=== PATIENT | male | born 1970 | race Caucasian/White ===

== ENCOUNTER 2016-10-11 10:22 | Emergency (ER) | payer OTHER ==
--- NOTE | 2016-10-11 11:21 | DIAGNOSTIC IMAGING REPORT ---
PROCEDURE: XR CHEST 1 VIEW INDICATION: CHEST PAIN TECHNIQUE: Portable AP view 10:35 a.m. COMPARISON: Chest 11/30/2014 FINDINGS: Lungs are clear. Heart and mediastinum are normal. Thorax is normal. IMPRESSION: 1. Negative chest.
--- NOTE | 2016-10-11 13:58 | ED CLINICAL REPORT ---
Clinical Report - Physicians/Mid Levels [facility] [address] [place] [address] 10/11/2016 10:23 Patient: CHRISTA LANTIGUA Time Seen: 10:34. Arrived- By private vehicle. Historian- patient. CPT: ER phys charges level 4 plus (#[id number]). EKG interpretation (#[id number]). HISTORY OF PRESENT ILLNESS Chief Complaint: CHEST DISCOMFORT. At its maximum, severity described as moderate. When seen in the E.D., severity described as mild. Modifying factors. Not worsened by anything. Not relieved by anything. This started about 4 months [employer]AG[employer]; his had this pain on and off for the last 4 months. Describes is in the left chest and feels like a muscle ache. Says it seen a humanities teacher a year ago and had a nuclear treadmill that was negative although the humanities teacher wanted to do a cardiac catheter. Patient failed to follow up for this. and is still present. Onset during light activity. It is described as sharp and "pain" and it is described as located in the left chest area. No nausea, vomiting, difficulty breathing or diaphoresis. Similar symptoms previously: Recent medical care: Not recently seen/assessed. REVIEW OF SYSTEMS No fever, chills, cough, pedal edema or calf pain. No fainting episodes, sore throat, blurred vision, abdominal pain or black stools. No difficulty with urination, skin rash, enlarged lymph nodes, joint pain or bloody stools. All systems otherwise negative, except as recorded above. PAST HISTORY Hyperlipidemia. Sprain. Bronchospasm. Pneumonia. COPD - Chronic Obstructive Pulmonary Disease. Dental Pain. Hypertension. Carpal Tunnel Syndrome. Cervical Strain. Rotator Cuff Injury. Lung Disease. Tetanus Status. Immunizations. Upper Extremity Pain. Manic depression. Bipolar Disorder. --10:27 Ferdinand Camarena R.N. ADDITIONAL SURGERIES: Carpal Tunnel Surgery. Inguinal Hernia Repair. No history of hypertension or diabetes mellitus. SOCIAL HISTORY Never smoker. FAMILY HISTORY History of heart disease with premature onset and in multiple family members. ADDITIONAL NOTES The nursing notes have been reviewed. PHYSICAL EXAM Vital Signs: 10/11/2016 10:25 BP: 135/96. HR: 73. RR: 16. O2 saturation: 100%. Temp: 97.8 F. Pain level now: 06/12. Appearance: Alert. No acute distress. Anxious. Eyes: Pupils equal, round and reactive to light. Eyes normal inspection. ENT: Ears normal. Nose normal. Pharynx normal. Neck: Normal inspection. Neck supple. CVS: Normal heart rate and rhythm. Heart sounds normal. Pulses normal. No cardiac murmur. Respiratory: No respiratory distress. Chest pain reproducible with palpation of the costochondral junction and lateral chest wall, with movement of the trunk and left arm and with deep breathing. Breath sounds normal. Abdomen: Soft and nontender. Back: Normal external inspection. Skin: Skin warm. Normal skin color. No rash. Extremities: Extremities exhibit normal ROM. No calf tenderness. Neuro: Oriented X 3. No motor deficit. No sensory deficit. Reflexes normal. LABS, X-RAYS, AND EKG EKG: Normal sinus rhythm. Normal P waves. Normal CLIFF. Normal QRS complex. Normal axis. Normal ST and T waves. Prior EKG unavailable. The study has been interpreted contemporaneously. The study has been independently viewed by me. The EKG appears to be a good tracing. Chest X-ray: Normal Chest X-Ray. Laboratory Tests: CBC w Diff: (FERNANDA: 10/11/2016 10:30) ( MsgRcvd 10/11/2016 10:41) Final results Test Result Flag Units (Reference) WHITE BLOOD COUNT 6.1 K/uL (4.5-11.5) RED BLOOD COUNT 5.16 M/uL (4.50-5.90) HEMOGLOBIN 15.1 gm/dL (13.5-17.5) HEMATOCRIT 45.5 % (41.0-53.0) MEAN CELL VOLUME 88 fL (80-100) MEAN CORPUSCULAR HGB 29 pg (26-34) MEAN CORPUSCULAR HGB CONC 33 g/dL (31-37) RED CELL DISTRIBUTION WIDTH 14.0 % (11.6-14.8) PLATELET COUNT 203 K/uL (150-400) NEUTROPHIL % 57.8 % (50-75) LYMPH % 31.8 % (25-40) MONO % 8.2 % (3-14) EOSINOPHIL % 1.9 % (0-4) BASOPHIL % 0.3 % (0-2) [id number]: (FERNANDA: 10/11/2016 10:30) ( MsgRcvd 10/11/2016 11:52) Final results Test Result Flag Units (Reference) C-REACTIVE PROTEIN < 0.2 mg/dL (0.0-0.9) CHEM 13 PANEL: (FERNANDA: 10/11/2016 10:30) ( MsgRcvd 10/11/2016 11:02) Final results Test Result Flag Units (Reference) GLUCOSE 139 H mg/dL (70-110) BUN 15 mg/dL (7-18) CREATININE 1.1 mg/dL (0.6-1.3) Estimated GFR >60 mL/min Estimated GFR- >60 mL/min Note: Persistent reduction over 3 months in eGFR<60 mL/min/1.73 m2 defines CKD. Patients with eGFR values>=60 mL/min/1.73 m2 may also have CKD if evidence ofpersistent proteinuria. Additional information may be foundat [email or web address].org. SODIUM 142 mmol/L (136-145) POTASSIUM 4.0 mmol/L (3.5-5.1) CHLORIDE 103 mmol/L (98-107) CARBON DIOXIDE 29 mmol/L (21-32) CALCIUM 9.3 mg/dL (8.5-10.1) TOTAL PROTEIN 8.1 g/dL (6.4-8.2) ALBUMIN 3.7 g/dL (3.3-5.0) BILIRUBIN, TOTAL 0.4 mg/dL (0.0-1.0) ALKALINE PHOSPHATASE 90 U/L (46-116) AST (SGOT) 29 U/L (15-37) ALT (SGPT) 43 U/L (12-78) CPK 116 U/L (24-260) MAGNESIUM 2.0 mg/dL (1.8-2.4) TROPONIN I <0.05 L ng/mL (0.00-1.5) TROPONIN REFERENCE RANGE:<0.1 NEGATIVE0.1-1.5 INDETERMINANT>1.5 POSITIVE . PROGRESS AND PROCEDURES Course of Care: Heplock ASA 325 mg po Toradol 30 mg IV Ativan 0.5 mg IV Patient is stable. Symptoms better. Dr Morales: orderdd a coronary CTA. Insurance company denied . Angiogram offered but he was a no show. Discussed case with health care provider (Pt's humanities teacher, Carol Simon.). Reviewed test results. Agreed upon treatment plan. Health care provider will see patient in office. Patient/family counseled. Old medical records ordered. Disposition: Discharged. Condition: stable and improved. CLINICAL IMPRESSION Costochondritis .12 lead EKG performed. Anxiety due to job and chest pains. INSTRUCTIONS No strenuous activity. Rest. Do not work for two days until better. Warnings: Further evaluation is necessary. GENERAL WARNINGS: Return or contact your physician immediately if your condition worsens or changes unexpectedly, if not improving as expected, or if other problems arise. Prescription Medications: Hydrocodone/APAP 5mg/325mg: take 1 to 2 orally every 6 hours as needed for pain. Dispense fifteen (15). No refills. Ibuprofen 600mg tablets: take 1 tablet orally every 8 hours as needed for pain. Dispense thirty (30). No refills. Flexeril 10 mg: Take 1 orally every 8 hours as needed for muscle spasm. Dispense twenty (20). No refills. Substitution is permissible. Follow-up: Follow up with your doctor in one week. Call for an appointment. Follow up with a humanities teacher in one week. Call for an appointment. Understanding of the discharge instructions verbalized by patient. (Electronically signed by Ghanshyam Vaughan MD 10/12/2016 12:47)
--- NOTE | 2016-10-11 13:58 | ED NURSING NOTES ---
Clinical Report - Nurses [facility] [address] [address] 10/11/2016 10:23 Patient: CHRISTA LANTIGUA TRIAGE Triage time 10:25. Acuity: LEVEL 3. Chief Complaint: CHEST PAIN. 10:25 10/11/16. 10:25 10/11/16. Alert. No acute distress. --10:30 Ferdinand Camarena R.N. 10:25 10/11/16. BP: 135/96 taken on the left arm, while lying. HR: 73. RR: 16. O2 saturation: 100% on room air. Temp: 97.8 F (oral). Pain level now: 06/12. --10:30 Ferdinand Camarena R.N. SEPSIS SCREEN: Sepsis Screen. Negative (no infection suspected/documented). BALJINDER COMA SCORE: Baljinder Coma Scale: 15- eyes open spontaneously (4); best verbal response- oriented x 4 (5); best motor response- obeys commands (6). --11:24 Ferdinand Camarena R.N. Weight: 68 kg stated. Height/Length: 68 inches Per Patient. BMI: 22.8. --10:27 Ferdinand Camarena R.N. Medications Albuterol Sulfate Inhalation 2 puffs, PRN. Methadone HCl Oral (Tablet 10 mg) 1 tablet, BID. --10:26 Ferdinand Camarena R.N. Ziprasidone HCl Oral 20 mg, daily. --10:26 Ferdinand Camarena R.N. Medication/allergy information source: the patient and patient's family. --10:30 Ferdinand Camarena R.N. Allergies Codeine. Penicillins. --10:25 Ferdinand Camarena R.N. History Arrived by private vehicle. Historian: patient. Accompanied by family. Primary physician (BETHANY CALVIN). 10:25 10/11/16. ( For the past few months). 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 PAST MEDICAL HX: Immunizations not up to date. SOCIAL HX: Never smoker. No alcohol use or drug use. No infectious disease exposure. ABUSE ASSESSMENT: No report of abuse. FALL RISK ASSESSMENT: Fall risk assessment completed. No fall risk identified. NUTRITIONAL RISK ASSESSMENT: The nutritional risk assessment revealed no deficiencies. FUNCTIONAL ASSESSMENT: Functional assessment: no impairments noted. LEARNING NEEDS ASSESSMENT: The learning needs assessment revealed no barriers. SKIN INTEGRITY ASSESSMENT: Skin integrity risk assessment completed. No skin integrity risk identified. --10:30 Ferdinand Camarena R.N. PROBLEMS: Sprain. Bronchospasm. Pneumonia. COPD - Chronic Obstructive Pulmonary Disease. Dental Pain. Hypertension. Carpal Tunnel Syndrome. Cervical Strain. Rotator Cuff Injury. Lung Disease. Tetanus Status. Immunizations. Upper Extremity Pain. Manic depression. Bipolar Disorder. --10:27 Ferdinand Camarena R.N. ADDITIONAL SURGERIES: Carpal Tunnel Surgery. Inguinal Hernia Repair. --10:27 Ferdinand Camarena R.N. Assessment 10:10/11/16. --10:30 Ferdinand Camarena R.N. Interventions 10:10/11/16. 10:10/11/16. ID and allergy band on patient. To treatment room. --10:30 Ferdinand Camarena R.N. PHYSICAL ASSESSMENT 10:10/11/16. GENERAL / NEURO / PSYCH: Alert. Oriented X 4. Appears in pain. RESPIRATORY: Respirations not labored. SKIN: Skin is warm and dry. --10:29 Ferdinand Camarena R.N. NURSING PROGRESS NOTES 10:10/11/16. The plan of care for this patient has been created. site monitor, pulse oximeter and NIBP monitor placed on patient; monitor alarms on. Patient gowned. Head of bed elevated. Reassurance given. Two patient identifiers checked. Call light placed in reach. Side rails up x 2. Bed placed in lowest position. Brakes of bed on. Brakes of chair on. --10:29 Ferdinand Camarena R.N. 10:29 10/11/16. Patient ready for evaluation- chart flagged and notification provided. --10:29 Ferdinand Camarena R.N. 10:31 10/11/2016 Site #1 started via IV in the left antecubital space with an 20g angiocath, with aseptic technique and good blood return; one attempt. Blood drawn: rainbow set. Labeled in the presence of the patient and sent to the lab. Saline lock flushed with 10 mL saline. --10:32 Ferdinand Camarena R.N. 10:31 10/11/16. EKG time: (1034 AM). EKG was ordered, performed by a nurse and shown to the ED physician. --10:31 Ferdinand Camarena R.N. 10:32 10/11/16. Cardiac rhythm: normal sinus rhythm. --10:32 Ferdinand Camarena R.N. 10:47 10/11/2016 Aspirin PO Tablets 325 mg given. Allergies verified and confirmed 5 rights. --10:48 Fatimah Palacios R.N. 11:34 10/11/2016 Toradol IVP 30 mg given over 2 minute(s) via site #1. Allergies verified and confirmed 5 rights. IV patency established. IV site checked: no pain, redness, or swelling. IV flushed thoroughly pre- and post-medication administration. IVP given by RN. --11:34 Ferdinand Camarena R.N. 11:35 10/11/2016 Ativan (LORazepam) IVP 0.5 mg given over 2 minute(s) via site #1. Allergies verified, confirmed 5 rights and sedative warning given to the patient. IV patency established. IV site checked: no pain, redness, or swelling. IV flushed thoroughly pre- and post-medication administration. IVP given by RN. --11:35 Ferdinand Camarena R.N. 11:35 10/11/16. Cardiac rhythm: normal sinus rhythm. --11:35 Ferdinand Camarena R.N. 11:35 10/11/16. BP: 131/92. HR: 65. RR: 14. O2 saturation: 100% on nasal cannula at 2 liters/minute. --11:35 Ferdinand Camarena R.N. 12:18 10/11/16. --12:18 Ferdinadn Camarena R.N. 12:18 10/11/16. BP: 125/70. HR: 82 (regular). RR: 12. O2 saturation: 100% on nasal cannula at 2 liters/minute. --12:18 Ferdinand Camarena R.N. 12:18 10/11/16. Cardiac rhythm: normal sinus rhythm. --12:18 Ferdinand Camarena R.N. 12:18 10/11/16. Reassessment after medication administered. He has had no adverse reaction. Overall patient status is improved- he states feels better. --12:18 Ferdinand Camarena R.N. DISPOSITION / DISCHARGE 14:08 10/11/16. Condition at departure: improved. The goals identified in the patient's plan of care were met. No learning barriers present. Discharge instructions provided and reviewed with the patient. Reviewed warnings. Reviewed medication(s). Treatments reviewed. Patient verbalized understanding. Written instructions provided in Salvadorean. The patient was discharged by the physician. He was discharged home and accompanied by family. He left the Emergency Department ambulatory and via private vehicle. Family member driving. FALL RISK ASSESSMENT: Fall risk assessment completed. No fall risk identified. --14:08 Ferdinand Camarena R.N. 14:06 10/11/16. BP: 116/72. HR: 82. RR: 15. O2 saturation: 100% on room air. Temp: 98.2 F (oral). --14:08 Ferdinand Camarena R.N. 14:10/11/16. Departure time: 14:08. --14:08 Ferdinand Camarena R.N. Locked/Released at 10/11/2016 14:31 by Ferdinand Camarena R.N.
--- NOTE | 2016-10-11 13:58 | ED NURSING NOTES ---
Clinical Report - Nurses [facility] [address] [address] 10/11/2016 10:23 Patient: CHRISTA LANTIGUA TRIAGE Triage time 10:25. Acuity: LEVEL 3. Chief Complaint: CHEST PAIN. 10:25 10/11/16. 10:25 10/11/16. Alert. No acute distress. --10:30 Ferdinand Camarena R.N. 10:25 10/11/16. BP: 135/96 taken on the left arm, while lying. HR: 73. RR: 16. O2 saturation: 100% on room air. Temp: 97.8 F (oral). Pain level now: 06/12. --10:30 Ferdinand Camarena R.N. SEPSIS SCREEN: Sepsis Screen. Negative (no infection suspected/documented). BALJINDER COMA SCORE: Baljinder Coma Scale: 15- eyes open spontaneously (4); best verbal response- oriented x 4 (5); best motor response- obeys commands (6). --11:24 Ferdinand Camarena R.N. Weight: 68 kg stated. Height/Length: 68 inches Per Patient. BMI: 22.8. --10:27 Ferdinand Camarena R.N. Medications Albuterol Sulfate Inhalation 2 puffs, PRN. Methadone HCl Oral (Tablet 10 mg) 1 tablet, BID. --10:26 Ferdinand Camarena R.N. Ziprasidone HCl Oral 20 mg, daily. --10:26 Ferdinand Camarena R.N. Medication/allergy information source: the patient and patient's family. --10:30 Ferdinand Camarena R.N. Allergies Codeine. Penicillins. --10:25 Ferdinand Camarena R.N. History Arrived by private vehicle. Historian: patient. Accompanied by family. Primary physician (BETHANY CALVIN). 10:25 10/11/16. ( For the past few months). 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 PAST MEDICAL HX: Immunizations not up to date. SOCIAL HX: Never smoker. No alcohol use or drug use. No infectious disease exposure. ABUSE ASSESSMENT: No report of abuse. FALL RISK ASSESSMENT: Fall risk assessment completed. No fall risk identified. NUTRITIONAL RISK ASSESSMENT: The nutritional risk assessment revealed no deficiencies. FUNCTIONAL ASSESSMENT: Functional assessment: no impairments noted. LEARNING NEEDS ASSESSMENT: The learning needs assessment revealed no barriers. SKIN INTEGRITY ASSESSMENT: Skin integrity risk assessment completed. No skin integrity risk identified. --10:30 Ferdinand Camarena R.N. PROBLEMS: Sprain. Bronchospasm. Pneumonia. COPD - Chronic Obstructive Pulmonary Disease. Dental Pain. Hypertension. Carpal Tunnel Syndrome. Cervical Strain. Rotator Cuff Injury. Lung Disease. Tetanus Status. Immunizations. Upper Extremity Pain. Manic depression. Bipolar Disorder. --10:27 Ferdinand Camarena R.N. ADDITIONAL SURGERIES: Carpal Tunnel Surgery. Inguinal Hernia Repair. --10:27 Ferdinand Camarena R.N. Assessment 10:10/11/16. --10:30 Ferdinand Camarena R.N. Interventions 10:10/11/16. 10:10/11/16. ID and allergy band on patient. To treatment room. --10:30 Ferdinand Camarena R.N. PHYSICAL ASSESSMENT 10:10/11/16. GENERAL / NEURO / PSYCH: Alert. Oriented X 4. Appears in pain. RESPIRATORY: Respirations not labored. SKIN: Skin is warm and dry. --10:29 Ferdinand Camarena R.N. NURSING PROGRESS NOTES 10:10/11/16. The plan of care for this patient has been created. nurse monitoring, pulse oximeter and NIBP monitor placed on patient; monitor alarms on. Patient gowned. Head of bed elevated. Reassurance given. Two patient identifiers checked. Call light placed in reach. Side rails up x 2. Bed placed in lowest position. Brakes of bed on. Brakes of chair on. --10:29 Ferdinand Camarena R.N. 10:29 10/11/16. Patient ready for evaluation- chart flagged and notification provided. --10:29 Ferdinand Camarena R.N. 10:31 10/11/2016 Site #1 started via IV in the left antecubital space with an 20g angiocath, with aseptic technique and good blood return; one attempt. Blood drawn: rainbow set. Labeled in the presence of the patient and sent to the lab. Saline lock flushed with 10 mL saline. --10:32 Ferdinand Camarena R.N. 10:31 10/11/16. EKG time: (1034 AM). EKG was ordered, performed by a nurse and shown to the ED physician. --10:31 Ferdinand Camarena R.N. 10:32 10/11/16. Cardiac rhythm: normal sinus rhythm. --10:32 Ferdinand Camarena R.N. 10:47 10/11/2016 Aspirin PO Tablets 325 mg given. Allergies verified and confirmed 5 rights. --10:48 Fatimah Palacios R.N. 11:34 10/11/2016 Toradol IVP 30 mg given over 2 minute(s) via site #1. Allergies verified and confirmed 5 rights. IV patency established. IV site checked: no pain, redness, or swelling. IV flushed thoroughly pre- and post-medication administration. IVP given by RN. --11:34 Ferdinand Camarena R.N. 11:35 10/11/2016 Ativan (LORazepam) IVP 0.5 mg given over 2 minute(s) via site #1. Allergies verified, confirmed 5 rights and sedative warning given to the patient. IV patency established. IV site checked: no pain, redness, or swelling. IV flushed thoroughly pre- and post-medication administration. IVP given by RN. --11:35 Ferdinand Camarena R.N. 11:35 10/11/16. Cardiac rhythm: normal sinus rhythm. --11:35 Ferdinand Camarena R.N. 11:35 10/11/16. BP: 131/92. HR: 65. RR: 14. O2 saturation: 100% on nasal cannula at 2 liters/minute. --11:35 Ferdinand Camarena R.N. 12:18 10/11/16. --12:18 Ferdinand Camarena R.N. 12:18 10/11/16. BP: 125/70. HR: 82 (regular). RR: 12. O2 saturation: 100% on nasal cannula at 2 liters/minute. --12:18 Ferdinand Camarena R.N. 12:18 10/11/16. Cardiac rhythm: normal sinus rhythm. --12:18 Ferdinand Camarena R.N. 12:18 10/11/16. Reassessment after medication administered. He has had no adverse reaction. Overall patient status is improved- he states feels better. --12:18 Ferdinand Camarena R.N. DISPOSITION / DISCHARGE 14:08 10/11/16. Condition at departure: improved. The goals identified in the patient's plan of care were met. No learning barriers present. Discharge instructions provided and reviewed with the patient. Reviewed warnings. Reviewed medication(s). Treatments reviewed. Patient verbalized understanding. Written instructions provided in [place] Islander. The patient was discharged by the physician. He was discharged home and accompanied by family. He left the Emergency Department ambulatory and via private vehicle. Family member driving. FALL RISK ASSESSMENT: Fall risk assessment completed. No fall risk identified. --14:08 Ferdinand Camarena R.N. 14:06 10/11/16. BP: 116/72. HR: 82. RR: 15. O2 saturation: 100% on room air. Temp: 98.2 F (oral). --14:08 Ferdinand Camarena R.N. 14:10/11/16. Departure time: 14:08. --14:08 Ferdinand Camarena R.N. Locked/Released at 10/11/2016 14:31 by Ferdinand Camarena R.N.
--- NOTE | 2016-10-11 13:58 | ED CLINICAL REPORT ---
Clinical Report - Physicians/Mid Levels [facility] [address] [place] [address] 10/11/2016 10:23 Patient: CHRISTA LANTIGUA Time Seen: 10:34. Arrived- By private vehicle. Historian- patient. CPT: ER phys charges level 4 plus (#[id number]). EKG interpretation (#[id number]). HISTORY OF PRESENT ILLNESS Chief Complaint: CHEST DISCOMFORT. At its maximum, severity described as moderate. When seen in the E.D., severity described as mild. Modifying factors. Not worsened by anything. Not relieved by anything. 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 Describes is in the left chest and feels like a muscle ache. Says it seen a special population paraprofessional a year ago and had a nuclear treadmill that was negative although the special population paraprofessional wanted to do a cardiac catheter. Patient failed to follow up for this. and is still present. Onset during light activity. It is described as sharp and "pain" and it is described as located in the left chest area. No nausea, vomiting, difficulty breathing or diaphoresis. Similar symptoms previously: Recent medical care: Not recently seen/assessed. REVIEW OF SYSTEMS No fever, chills, cough, pedal edema or calf pain. No fainting episodes, sore throat, blurred vision, abdominal pain or black stools. No difficulty with urination, skin rash, enlarged lymph nodes, joint pain or bloody stools. All systems otherwise negative, except as recorded above. PAST HISTORY Hyperlipidemia. Sprain. Bronchospasm. Pneumonia. COPD - Chronic Obstructive Pulmonary Disease. Dental Pain. Hypertension. Carpal Tunnel Syndrome. Cervical Strain. Rotator Cuff Injury. Lung Disease. Tetanus Status. Immunizations. Upper Extremity Pain. Manic depression. Bipolar Disorder. --10:27 Ferdinand Camarena R.N. ADDITIONAL SURGERIES: Carpal Tunnel Surgery. Inguinal Hernia Repair. No history of hypertension or diabetes mellitus. SOCIAL HISTORY Never smoker. FAMILY HISTORY History of heart disease with premature onset and in multiple family members. ADDITIONAL NOTES The nursing notes have been reviewed. PHYSICAL EXAM Vital Signs: 10/11/2016 10:25 BP: 135/96. HR: 73. RR: 16. O2 saturation: 100%. Temp: 97.8 F. Pain level now: 06/12. Appearance: Alert. No acute distress. Anxious. Eyes: Pupils equal, round and reactive to light. Eyes normal inspection. ENT: Ears normal. Nose normal. Pharynx normal. Neck: Normal inspection. Neck supple. CVS: Normal heart rate and rhythm. Heart sounds normal. Pulses normal. No cardiac murmur. Respiratory: No respiratory distress. Chest pain reproducible with palpation of the costochondral junction and lateral chest wall, with movement of the trunk and left arm and with deep breathing. Breath sounds normal. Abdomen: Soft and nontender. Back: Normal external inspection. Skin: Skin warm. Normal skin color. No rash. Extremities: Extremities exhibit normal ROM. No calf tenderness. Neuro: Oriented X 3. No motor deficit. No sensory deficit. Reflexes normal. LABS, X-RAYS, AND EKG EKG: Normal sinus rhythm. Normal P waves. Normal CLIFF. Normal QRS complex. Normal axis. Normal ST and T waves. Prior EKG unavailable. The study has been interpreted contemporaneously. The study has been independently viewed by me. The EKG appears to be a good tracing. Chest X-ray: Normal Chest X-Ray. Laboratory Tests: CBC w Diff: (FERNANDA: 10/11/2016 10:30) ( MsgRcvd 10/11/2016 10:41) Final results Test Result Flag Units (Reference) WHITE BLOOD COUNT 6.1 K/uL (4.5-11.5) RED BLOOD COUNT 5.16 M/uL (4.50-5.90) HEMOGLOBIN 15.1 gm/dL (13.5-17.5) HEMATOCRIT 45.5 % (41.0-53.0) MEAN CELL VOLUME 88 fL (80-100) MEAN CORPUSCULAR HGB 29 pg (26-34) MEAN CORPUSCULAR HGB CONC 33 g/dL (31-37) RED CELL DISTRIBUTION WIDTH 14.0 % (11.6-14.8) PLATELET COUNT 203 K/uL (150-400) NEUTROPHIL % 57.8 % (50-75) LYMPH % 31.8 % (25-40) MONO % 8.2 % (3-14) EOSINOPHIL % 1.9 % (0-4) BASOPHIL % 0.3 % (0-2) [id number]: (FERNANDA: 10/11/2016 10:30) ( MsgRcvd 10/11/2016 11:52) Final results Test Result Flag Units (Reference) C-REACTIVE PROTEIN < 0.2 mg/dL (0.0-0.9) CHEM 13 PANEL: (FERNANDA: 10/11/2016 10:30) ( MsgRcvd 10/11/2016 11:02) Final results Test Result Flag Units (Reference) GLUCOSE 139 H mg/dL (70-110) BUN 15 mg/dL (7-18) CREATININE 1.1 mg/dL (0.6-1.3) Estimated GFR >60 mL/min Estimated GFR- >60 mL/min Note: Persistent reduction over 3 months in eGFR<60 mL/min/1.73 m2 defines CKD. Patients with eGFR values>=60 mL/min/1.73 m2 may also have CKD if evidence ofpersistent proteinuria. Additional information may be foundat www.[email or web address].org. SODIUM 142 mmol/L (136-145) POTASSIUM 4.0 mmol/L (3.5-5.1) CHLORIDE 103 mmol/L (98-107) CARBON DIOXIDE 29 mmol/L (21-32) CALCIUM 9.3 mg/dL (8.5-10.1) TOTAL PROTEIN 8.1 g/dL (6.4-8.2) ALBUMIN 3.7 g/dL (3.3-5.0) BILIRUBIN, TOTAL 0.4 mg/dL (0.0-1.0) ALKALINE PHOSPHATASE 90 U/L (46-116) AST (SGOT) 29 U/L (15-37) ALT (SGPT) 43 U/L (12-78) CPK 116 U/L (24-260) MAGNESIUM 2.0 mg/dL (1.8-2.4) TROPONIN I <0.05 L ng/mL (0.00-1.5) TROPONIN REFERENCE RANGE:<0.1 NEGATIVE0.1-1.5 INDETERMINANT>1.5 POSITIVE . PROGRESS AND PROCEDURES Course of Care: Heplock ASA 325 mg po Toradol 30 mg IV Ativan 0.5 mg IV Patient is stable. Symptoms better. Dr Morales: orderdd a coronary CTA. Insurance company denied . Angiogram offered but he was a no show. Discussed case with health care provider (Pt's special population paraprofessional, Carol Simon.). Reviewed test results. Agreed upon treatment plan. Health care provider will see patient in office. Patient/family counseled. Old medical records ordered. Disposition: Discharged. Condition: stable and improved. CLINICAL IMPRESSION Costochondritis .12 lead EKG performed. Anxiety due to job and chest pains. INSTRUCTIONS No strenuous activity. Rest. Do not work for two days until better. Warnings: Further evaluation is necessary. GENERAL WARNINGS: Return or contact your physician immediately if your condition worsens or changes unexpectedly, if not improving as expected, or if other problems arise. Prescription Medications: Hydrocodone/APAP 5mg/325mg: take 1 to 2 orally every 6 hours as needed for pain. Dispense fifteen (15). No refills. Ibuprofen 600mg tablets: take 1 tablet orally every 8 hours as needed for pain. Dispense thirty (30). No refills. Flexeril 10 mg: Take 1 orally every 8 hours as needed for muscle spasm. Dispense twenty (20). No refills. Substitution is permissible. Follow-up: Follow up with your doctor in one week. Call for an appointment. Follow up with a special population paraprofessional in one week. Call for an appointment. Understanding of the discharge instructions verbalized by patient. (Electronically signed by Ghanshyam Vaughan MD 10/12/2016 12:47)
--- NOTE | 2016-10-11 13:59 | ED ORDER SUMMARY ---
..... Patient: CHRISTA LANTIGUA OrderSheet [facility] VisitID: [id number] [place] [address] 46y, M Registration Date/Time: 10/11/2016 ORDER SHEET Weight: 68.0 kg (stated) Allergies: Codeine, Penicillins GENERAL ORDERS: Chest 1V Urgent (10:30 10/11/2016 JBoardley R.N. per protocol) (Ack 10:32 LMuller) (10:41 JBoardley R.N.) Store Assistant (Continuous) (10:30 10/11/2016 JBoardley R.N. per protocol) (10:31 JBoardley R.N.) Cardiac Panel Stat (10:30 10/11/2016 JBoardley R.N. per protocol) (Ack 10:32 LMuller) (10:41 JBoardley R.N.) Pulse oximeter (10:30 10/11/2016 JBoardley R.N. per protocol) (10:31 JBoardley R.N.) EKG - ER Stat (10:30 10/11/2016 JBoardley R.N. per protocol) (10:31 JBoardley R.N.) Vitals (10:30 10/11/2016 JBoardley R.N. per protocol) (10:31 JBoardley R.N.) CRP Urgent (11:02 10/11/2016 Kiara HORNE) (Ack 11:08 LMuller) (11:09 LMuller) Old Records ([place] about a year ago , nuclear treadmill.) (11:03 10/11/2016 Kiara HORNE) (11:07 LMuller) MEDICATION ORDERS: Aspirin PO 325 mg (Do not crush or chew, NOW) (10:40 10/11/2016 JBoardley R.N. per protocol) (10:47 Roxanne R.N.) IV FLUIDS: IV Saline Lock (10:30 10/11/2016 JBoardley R.N. per protocol) (10:32 JBoardley R.N.) Toradol IV 30 mg (NOW) (11:26 10/11/2016 Kiara HORNE) (Ack 11:26 JBoardley R.N.) (11:34 JBoardley R.N.) Ativan IV 0.5 mg (NOW) (11:10/11/2016 Kiara HORNE) (Ack 11:26 JBoardley R.N.) (11:35 JBoardley R.N.) ORDER SHEET NOTES: [Electronically signed by Ferdinand Camarena R.N. (14:31 10/11/2016)] [Electronically signed by Ghanshyam aVughan MD (12:47 10/12/2016)] [Electronically locked/signed by Ferdinand Camarena R.N. (14:31 10/11/2016)]
--- NOTE | 2016-10-11 13:59 | ED ORDER SUMMARY ---
..... Patient: CHRISTA LANTIGUA OrderSheet [facility] VisitID: [id number] [place] [address] 46y, M Registration Date/Time: 10/11/2016 ORDER SHEET Weight: 68.0 kg (stated) Allergies: Codeine, Penicillins GENERAL ORDERS: Chest 1V Urgent (10:30 10/11/2016 JBoardley R.N. per protocol) (Ack 10:32 LMuller) (10:41 JBoardley R.N.) Journalism Instructor (Continuous) (10:30 10/11/2016 JBoardley R.N. per protocol) (10:31 JBoardley R.N.) Cardiac Panel Stat (10:30 10/11/2016 JBoardley R.N. per protocol) (Ack 10:32 LMuller) (10:41 JBoardley R.N.) Pulse oximeter (10:30 10/11/2016 JBoardley R.N. per protocol) (10:31 JBoardley R.N.) EKG - ER Stat (10:30 10/11/2016 JBoardley R.N. per protocol) (10:31 JBoardley R.N.) Vitals (10:30 10/11/2016 JBoardley R.N. per protocol) (10:31 JBoardley R.N.) CRP Urgent (11:02 10/11/2016 Kiara HORNE) (Ack 11:08 LMuller) (11:09 LMuller) Old Records ([place] about a year ago , nuclear treadmill.) (11:03 10/11/2016 Kiara HORNE) (11:07 LMuller) MEDICATION ORDERS: Aspirin PO 325 mg (Do not crush or chew, NOW) (10:40 10/11/2016 JBoardley R.N. per protocol) (10:47 Roxanne R.N.) IV FLUIDS: IV Saline Lock (10:30 10/11/2016 JBoardley R.N. per protocol) (10:32 JBoardley R.N.) Toradol IV 30 mg (NOW) (11:26 10/11/2016 Kiara HORNE) (Ack 11:26 JBoardley R.N.) (11:34 JBoardley R.N.) Ativan IV 0.5 mg (NOW) (11:10/11/2016 Kiara HORNE) (Ack 11:26 JBoardley R.N.) (11:35 JBoardley R.N.) ORDER SHEET NOTES: [Electronically signed by Ferdinand Camarena R.N. (14:31 10/11/2016)] [Electronically signed by Ghanshyam Vaughan MD (12:47 10/12/2016)] [Electronically locked/signed by Ferdinand Camarena R.N. (14:31 10/11/2016)]
--- NOTE | 2016-10-12 12:47 | ED MAR SUMMARY ---
..... Medication Administration Record [facility] [address] [place] [address] Patient: CHRISTA LANTIGUA Visit ID: [id number] 46y, M Weight: 68.0 kg Height/Length: 68 in BMI: 22.8 ALLERGIES: Codeine, Penicillins Given 10:47 10/11/2016 Fatimah Palacios R.N. Medication Administered: ASPIRIN [PO], Dose: 325 mg Tablets PO. Medication Ordered: Aspirin PO 325 mg (Do not crush or chew, NOW). Given 11:34 10/11/2016 Ferdinand Camarena R.N. Medication Administered: TORADOL [IVP], Dose: 30 mg IVP over 2 minute(s), Site: #1 left AC. Medication Ordered: Toradol IV 30 mg (NOW). Given 11:35 10/11/2016 Ferdinand Camarena R.N. Medication Administered: ATIVAN [IVP] (LORAZEPAM), Dose: 0.5 mg IVP over 2 minute(s), Site: #1 left AC. Medication Ordered: Ativan IV 0.5 mg (NOW).
--- NOTE | 2016-10-12 12:47 | ED MAR SUMMARY ---
..... Medication Administration Record [facility] [address] [place] [address] Patient: CHRISTA LANTIGUA Visit ID: [id number] 46y, M Weight: 68.0 kg Height/Length: 68 in BMI: 22.8 ALLERGIES: Codeine, Penicillins Given 10:47 10/11/2016 Fatimah Palacios R.N. Medication Administered: ASPIRIN [PO], Dose: 325 mg Tablets PO. Medication Ordered: Aspirin PO 325 mg (Do not crush or chew, NOW). Given 11:34 10/11/2016 Ferdinand Camarena R.N. Medication Administered: TORADOL [IVP], Dose: 30 mg IVP over 2 minute(s), Site: #1 left AC. Medication Ordered: Toradol IV 30 mg (NOW). Given 11:35 10/11/2016 Ferdinand Camarena R.N. Medication Administered: ATIVAN [IVP] (LORAZEPAM), Dose: 0.5 mg IVP over 2 minute(s), Site: #1 left AC. Medication Ordered: Ativan IV 0.5 mg (NOW).
--- NOTE | 2016-10-12 12:47 | ED MED RECONCILIATION SUMMARY ---
Patient: CHRISTA LANTIGUA Medication Reconciliation Report [facility] VisitID: [id number] [address] [place] [address] 46y, M Registration Date/Time: 10/11/2016 Weight: 68.0 kg Height/Length: 68 in. BMI: 22.8 ALLERGIES: Codeine, Penicillins The patient's Home Medications are listed below: THE FOLLOWING MEDICATIONS NEED TO BE RECONCILED: Albuterol Sulfate Inhalation 2 puffs, PRN Methadone HCl Oral (10 mg) 1 tablet, BID Ziprasidone HCl Oral 20 mg, daily The source(s) of the original Home Medication information: patient patient's family member The following Medications were given to the patient in the Emergency Department: Aspirin [PO] PO 325 mg, administered: 10/11/2016 10:47:00 AM Toradol [IVP] IVP 30 mg, administered: 10/11/2016 11:34:00 AM Ativan [IVP] IVP 0.5 mg, administered: 10/11/2016 11:35:00 AM The following Medications were prescribed to the patient: Hydrocodone/APAP 5mg/325mg: take 1 to 2 orally every 6 hours as needed for pain. Dispense fifteen (15). No refills. -- Ghanshyam Vaughan MD Ibuprofen 600mg tablets: take 1 tablet orally every 8 hours as needed for pain. Dispense thirty (30). No refills. -- Ghanshyam Vaughan MD Flexeril 10 mg: Take 1 orally every 8 hours as needed for muscle spasm. Dispense twenty (20). No refills. Substitution is permissible. -- Ghanshyam Vaughan MD
--- NOTE | 2016-10-12 12:47 | ED DISCHARGE INSTRUCTIONS ---
Patient: CHRISTA LANTIGUA General Instructions [facility] VisitID: [id number] [place] [address] 46y, M Registration Date/Time: 10/11/2016 Costochondritis .12 lead EKG performed. Anxiety due to job and chest pains. INSTRUCTIONS No strenuous activity. Rest. Do not work for two days until better. Warnings: Further evaluation is necessary. GENERAL WARNINGS: Return or contact your physician immediately if your condition worsens or changes unexpectedly, if not improving as expected, or if other problems arise. Prescription Medications: Hydrocodone/APAP 5mg/325mg: take 1 to 2 orally every 6 hours as needed for pain. Dispense fifteen (15). No refills. Ibuprofen 600mg tablets: take 1 tablet orally every 8 hours as needed for pain. Dispense thirty (30). No refills. Flexeril 10 mg: Take 1 orally every 8 hours as needed for muscle spasm. Dispense twenty (20). No refills. Substitution is permissible. Follow-up: Follow up with your doctor in one week. Call for an appointment. Follow up with a programmer analyst in one week. Call for an appointment. Understanding of the discharge instructions verbalized by patient. ADDITIONAL INFORMATION Chest Wall Pain: Costochondritis The chest pain that you have had today is caused by Costochondritis. This condition is due to an inflammation of the cartilage joining the ribs to the breastbone. It is not caused by heart or lung problems. Although the exact cause for costochondritis is not known, it often occurs during times of emotional stress. It can be painful, but it is not dangerous. It usually disappears within one to two weeks, but may recur. Rarely, a more serious condition may cause symptoms similar to costochondritis; therefore, watch for the warning signs listed below. Home Care: If you feel that emotional stress is a cause of your condition, try to identify sources of that stress. It may not be obvious! Learn ways to deal with the stress in your life such as regular exercise, muscle relaxation, meditation, or simply taking time out for yourself. For more information about this, consult your doctor or go to a local bookstore and review books and tapes available on the subject of stress reduction. You may use acetaminophen (Tylenol) or ibuprofen (Motrin, Advil) to control pain, unless another pain medicine was prescribed. [ NOTE: If you have liver disease or ever had a stomach ulcer, talk with your doctor before using these medicines.] The use of heat (hot wet compress or heating pad) with or without local analgesic creams (Deep Heat Rub, Eb Vargas) will be helpful to reduce pain. Follow Up with your doctor as directed or sooner if you do not start to improve within the next two days. Get Prompt Medical Attention if any of the following occur: A change in the type of pain: if it feels different, becomes more severe, lasts longer, or spreads into your shoulder, arm, neck, jaw or back Shortness of breath or increased pain with breathing Weakness, dizziness, or fainting Cough with dark colored sputum (phlegm) or blood Abdominal pain Dark red or black stools Fever of 100.4F (38C) or higher, or as directed by your healthcare provider You have been given the following additional information: Chest Wall Pain, Costochondritis No strenuous activity. Rest. Do not work for two days until better. (Electronically signed by Ghanshyam Vaughan MD 10/12/2016 12:47)
--- NOTE | 2016-10-12 12:47 | ED MED RECONCILIATION SUMMARY ---
Patient: CHRISTA LANTIGUA Medication Reconciliation Report [facility] VisitID: [id number] [address] [place] [address] 46y, M Registration Date/Time: 10/11/2016 Weight: 68.0 kg Height/Length: 68 in. BMI: 22.8 ALLERGIES: Codeine, Penicillins The patient's Home Medications are listed below: THE FOLLOWING MEDICATIONS NEED TO BE RECONCILED: Albuterol Sulfate Inhalation 2 puffs, PRN Methadone HCl Oral (10 mg) 1 tablet, BID Ziprasidone HCl Oral 20 mg, daily The source(s) of the original Home Medication information: patient patient's family member The following Medications were given to the patient in the Emergency Department: Aspirin [PO] PO 325 mg, administered: 10/11/2016 10:47:00 AM Toradol [IVP] IVP 30 mg, administered: 10/11/2016 11:34:00 AM Ativan [IVP] IVP 0.5 mg, administered: 10/11/2016 11:35:00 AM The following Medications were prescribed to the patient: Hydrocodone/APAP 5mg/325mg: take 1 to 2 orally every 6 hours as needed for pain. Dispense fifteen (15). No refills. -- Ghanshyam Vaughan MD Ibuprofen 600mg tablets: take 1 tablet orally every 8 hours as needed for pain. Dispense thirty (30). No refills. -- Ghanshyam Vaughan MD Flexeril 10 mg: Take 1 orally every 8 hours as needed for muscle spasm. Dispense twenty (20). No refills. Substitution is permissible. -- Ghanshyam Vaughan MD
--- NOTE | 2016-10-12 12:47 | ED DISCHARGE INSTRUCTIONS ---
Patient: CHRISTA LANTIGUA General Instructions [facility] VisitID: [id number] [place] [address] 46y, M Registration Date/Time: 10/11/2016 Costochondritis .12 lead EKG performed. Anxiety due to job and chest pains. INSTRUCTIONS No strenuous activity. Rest. Do not work for two days until better. Warnings: Further evaluation is necessary. GENERAL WARNINGS: Return or contact your physician immediately if your condition worsens or changes unexpectedly, if not improving as expected, or if other problems arise. Prescription Medications: Hydrocodone/APAP 5mg/325mg: take 1 to 2 orally every 6 hours as needed for pain. Dispense fifteen (15). No refills. Ibuprofen 600mg tablets: take 1 tablet orally every 8 hours as needed for pain. Dispense thirty (30). No refills. Flexeril 10 mg: Take 1 orally every 8 hours as needed for muscle spasm. Dispense twenty (20). No refills. Substitution is permissible. Follow-up: Follow up with your doctor in one week. Call for an appointment. Follow up with a muff winder in one week. Call for an appointment. Understanding of the discharge instructions verbalized by patient. ADDITIONAL INFORMATION Chest Wall Pain: Costochondritis The chest pain that you have had today is caused by Costochondritis. This condition is due to an inflammation of the cartilage joining the ribs to the breastbone. It is not caused by heart or lung problems. Although the exact cause for costochondritis is not known, it often occurs during times of emotional stress. It can be painful, but it is not dangerous. It usually disappears within one to two weeks, but may recur. Rarely, a more serious condition may cause symptoms similar to costochondritis; therefore, watch for the warning signs listed below. Home Care: If you feel that emotional stress is a cause of your condition, try to identify sources of that stress. It may not be obvious! Learn ways to deal with the stress in your life such as regular exercise, muscle relaxation, meditation, or simply taking time out for yourself. For more information about this, consult your doctor or go to a local bookstore and review books and tapes available on the subject of stress reduction. You may use acetaminophen (Tylenol) or ibuprofen (Motrin, Advil) to control pain, unless another pain medicine was prescribed. [ NOTE: If you have liver disease or ever had a stomach ulcer, talk with your doctor before using these medicines.] The use of heat (hot wet compress or heating pad) with or without local analgesic creams (Deep Heat Rub, Eb Vargas) will be helpful to reduce pain. Follow Up with your doctor as directed or sooner if you do not start to improve within the next two days. Get Prompt Medical Attention if any of the following occur: A change in the type of pain: if it feels different, becomes more severe, lasts longer, or spreads into your shoulder, arm, neck, jaw or back Shortness of breath or increased pain with breathing Weakness, dizziness, or fainting Cough with dark colored sputum (phlegm) or blood Abdominal pain Dark red or black stools Fever of 100.4F (38C) or higher, or as directed by your healthcare provider You have been given the following additional information: Chest Wall Pain, Costochondritis No strenuous activity. Rest. Do not work for two days until better. (Electronically signed by Ghanshyam Vaughan MD 10/12/2016 12:47)
== END 2016-10-11 14:08 | disposition home or self-care (01) ==
LOC: ED SRH 10:22
DX: M94.0 Chondrocostal junction syndrome [Tietze] (principal); F41.8 Other specified anxiety disorders; J44.9 Chronic obstructive pulmonary disease, unspecified; Z88.5 Allergy status to narcotic agent; Z79.51 Long term (current) use of inhaled steroids
CPT/HCPCS: 90100; 90616; 91585; 92610; 92720; 95059